=== PATIENT | female | born 1975 | race Caucasian/White ===

== ENCOUNTER → 2018-05-07 | Outpatient (CLI) | payer OTHER ==
[2015-05-28 13:25] VITALS: BMI 27.1
[~2018-05-07] MED LIST: FERR325T5 PO; IBUP800T37 PO; NITR-105 PO; OXYC-373 PO; OXYC-865 PO; PNV1CAPS53 PO; SULF-198 PO
--- NOTE | 2018-05-11 10:47 | RADIOLOGY IMAGING REPORT ---
FACILITY: [facility] PATIENT NAME: YONNY MEDRANO : [id number] MR: [id number] V: [id number] EXAM DATE: [id number] ORDERING PHYSICIAN: JAIRO OLVERA TECHNOLOGIST: Cahrline Callahan PROCEDURE:BILATERAL DIGITAL SCREENING MAMMOGRAM WITH CAD ASSISTED INTERPRETATION & 3D TOMOSYNTHESIS COMPARISON:None. INDICATIONS:SCREENING FINDINGS: The breasts are heterogeneously dense which can obscure small masses. There is no demonstration of malignant appearing mass, malignant appearing calcifications or other secondary sign of malignancy in either breast. DIAGNOSTIC CATEGORY 1--NEGATIVE. RECOMMENDATIONS: ROUTINE MAMMOGRAM AND CLINICAL EVALUATION. IMPRESSION: BIRADS 1: Negative. No significant abnormality is seen. Dictated by: Iris Perez M.D. on 05/07/2018 at 15:23 Transcribed by: ARPIT on 05/07/2018 at 15:29 Approved by: Iris Perez M.D. on 05/11/2018 at 10:46 [facility]
== END ==
LOC: MAMO 00:25
PROVIDERS: ATTEND Obstetrics & Gynecology
DX: Z12.31 Encounter for screening mammogram for malignant neoplasm of breast (principal)
CPT/HCPCS: 77063; 77067